=== PATIENT | female | born 1965 | race Caucasian/White ===

== ENCOUNTER → 2023-10-04 17:09 | Outpatient (REF) | payer OTHER, SELFPAY | LOC: RAD 17:09 | PROVIDERS: ATTENDING PHYSICIAN Nurse Practitioner; FAMILY PHYSICIAN Student in an Organized Health Care Education/Training Program | DX: R31.21 Asymptomatic microscopic hematuria (principal) | CPT/HCPCS: 76770; 76856 ==

== ENCOUNTER → 2023-10-17 07:24 | Outpatient (REF) | payer OTHER, SELFPAY | LOC: HWRAD 07:24 | PROVIDERS: ATTENDING PHYSICIAN Nurse Practitioner; FAMILY PHYSICIAN Student in an Organized Health Care Education/Training Program | DX: N13.39 Other hydronephrosis (principal); N20.0 Calculus of kidney | CPT/HCPCS: 74176 ==

== ENCOUNTER → 2024-01-17 11:06 | Outpatient (REF) | payer OTHER, SELFPAY | LOC: HWRAD 11:06 | PROVIDERS: ATTENDING PHYSICIAN Urology; FAMILY PHYSICIAN Student in an Organized Health Care Education/Training Program | DX: R31.29 Other microscopic hematuria (principal); N30.10 Interstitial cystitis (chronic) without hematuria | CPT/HCPCS: 74178; Q9967 ==

== ENCOUNTER → 2024-03-03 10:35 | Outpatient (REF) | payer OTHER, SELFPAY | LOC: HWWDC 10:35 | PROVIDERS: ATTENDING PHYSICIAN Student in an Organized Health Care Education/Training Program | DX: Z12.31 Encounter for screening mammogram for malignant neoplasm of breast (principal) | CPT/HCPCS: 77063; 77067 ==